=== PATIENT | male | born 1990 | race Caucasian/White ===

== ENCOUNTER 2018-12-12 19:29 | Emergency (ER) | payer SELFPAY ==
[~2018-12-12] VITALS: Ht 175.3 cm; Wt 73.0 kg
--- NOTE | 2018-12-12 19:34 | NUR ---
PT BIB [facility] C/O HEROID OD W/ PERIOD OF APNEA AND REPORTED CYANOSIS. PT GIVEN 1 ROUND OF 1 MG OF NARCAN PER [facility] AND NORMAL RR ACHIEVED. VSS SINCE THAT POINT. PT AMB W/ STEADY GAIT TO ROOM UPON ADMIT. SKIN WARM DRY AND NORMAL FOR ETHNICITY. PT VSS IN ED. MILDLY TACHYCARDIC. PT REFUSING TO GET INTO GOWN OR WEAR 5LEAD. STATES "IM LEAVING SOON, I DONT SEE THE POINT." PT IS A+Ox4. OTHER MONITORING IN PLACE. CALL LIGHT WITHIN REACH.
--- NOTE | 2018-12-12 19:44 | NUR ---
PT DENYING SI/SA.
[2018-12-12 20:34] VITALS: BP 158/76
--- NOTE | 2018-12-12 20:34 | NUR ---
PT RESTING COMFORTABLY ON GURNEY. RR EVEN AND UNLABORED. VSS. CALL LIGHT WITHIN REACH. WILL CONTINUE TO MONITOR PER MD ORDER.
== END 2018-12-12 21:07 | disposition home or self-care (01) ==
LOC: ED 21:01
DX: T43.621A Poisoning by amphetamines, accidental (unintentional), initial encounter (principal); T40.1X1A Poisoning by heroin, accidental (unintentional), initial encounter; F17.200 Nicotine dependence, unspecified, uncomplicated
CPT/HCPCS: 99283